=== PATIENT | male | born 1995 | race Caucasian/White ===

== ENCOUNTER 2016-10-13 20:22 | Emergency (ER) | payer SELFPAY ==
[~2016-10-13] VITALS: Ht 177.8 cm; Wt 80.0 kg
[2016-10-13 20:40] VITALS: BP 146/86
== END 2016-10-13 21:06 | disposition left against medical advice (07) ==
LOC: EMS 20:25
DX: M54.9 Dorsalgia, unspecified (principal); Z53.21 Procedure and treatment not carried out due to patient leaving prior to being seen by health care provider